=== PATIENT | female | born 1990 | race Caucasian/White ===

== ENCOUNTER 2018-04-05 19:45 | Emergency (ER) | payer OTHER, MEDICAID ==
[~2018-04-05] VITALS: Ht 157.5 cm; Wt 93.0 kg
[~2018-04-05 19:45] MED LIST: LOTRIMIN AF12 GM TP; NOHOMEMEDICATIONS
[2018-04-05 21:05] VITALS: BP 108/65
== END 2018-04-05 21:05 | disposition home or self-care (01) ==
LOC: M.ERS 19:45
DX: S93.491A Sprain of other ligament of right ankle, initial encounter (principal); Z88.5 Allergy status to narcotic agent; X50.9XXA Other and unspecified overexertion or strenuous movements or postures, initial encounter; Y93.89 Activity, other specified; Y92.89 Other specified places as the place of occurrence of the external cause; Y99.8 Other external cause status